=== PATIENT | male | born 1980 | race Caucasian/White ===

== ENCOUNTER 2017-02-02 16:58 | Inpatient (IN) | payer OTHER ==
--- NOTE | ~2017-02-02 | HP ---
Unit #: [id number] #: [id number] Patient: ANTHONY REINOSO [id number] [place] [address] [id number] I MR#: [id number] NAME: ANTHONY REINOSO. ROOM: P210 Age: 36 Sex: M Admission Date: 02/02/2017 : 1980 Attending Physician: Gonzales Baird M.D. Admitting Physician: Gonzales Baird M.D. Primary Care Physician: Primary Care Physician No HISTORY AND PHYSICAL HISTORY OF PRESENT ILLNESS Anthony is a 36 year old admitted to [address] [place] [address] with depression and verbalizing wanting to hurt himself. PAST MEDICAL HISTORY 1. Alcohol abuse 2. High blood pressure, he is noncompliant with medications. PAST SURGICAL HISTORY Nothing reported. ALLERGIES No known drug allergies. SOCIAL HISTORY He smokes one=half pack per day. Drinks at least 6 beers on a daily basis and denies illicit drug use. FAMILY HISTORY Medically noncontributory. REVIEW OF SYSTEMS CONSTITUTIONAL: No fever or chills. HEENT: Denies any sore throat, ear pain or runny nose. CARDIOVASCULAR: Denies chest pain, irregular heart rhythm or palpitations. CHEST: Denies shortness of breath or cough. No hemoptysis. GASTROINTESTINAL: Denies nausea, vomiting, diarrhea or chronic constipation. ENDOCRINE: Denies history of increased thirst or urination. No recent significant weight loss or gain. GENITOURINARY: Denies dysuria, frequency, or hematuria. SKIN: Denies any rashes. HEMATOLOGIC: Denies history of increased bleeding or bruising. MUSCULOSKELETAL: Denies any hot, swollen joints. No generalized muscle pain. NEUROLOGIC: Denies problems with vision or speech. No frequent, severe headaches. No numbness, tingling or weakness in any extremities. Denies loss of bladder or bowel control. CURRENT MEDICATIONS 1. Detox protocol 2. Tenormin 25 mg daily Unit #: [id number] #: [id number] Patient: ANTHONY REINOSO PHYSICAL EXAMINATION GENERAL: Alert, well-nourished, in no apparent distress. VITAL SIGNS: Blood pressure 140/92, heart rate 88, respirations 16, temperature 98.6. WEIGHT: 140 pounds. SKIN: Warm and dry without rash. He does have multiple abrasions/scratches to the right side of his neck. These areas have scabbed over. There is no increased redness, swelling, heat or pus noted. HEENT: Normocephalic. TMs not viewed. Oral and nasal passages clear. Conjunctivae clear. Pupils equal, round and reactive to light and accommodation. Extraocular movements intact. NECK: Supple without lymphadenopathy or thyromegaly. HEART: Regular rate and rhythm without murmur. LUNGS: Clear. ABDOMEN: Soft, nontender. : Not done. EXTREMITIES: No evidence of cyanosis, clubbing or edema. Moves all extremities without focal deficit. NEUROLOGICAL: Grossly within normal limits. Cranial Nerves: II: Visual patiño are intact. III, IV AND : Extraocular movements are intact. Pupils are equal, round and reactive to light. V: Facial sensation is grossly normal. VII: Facial movements and expression are normal. VIII: Auditory acuity grossly intact. IX, X: Uvula is midline. Phonation is normal. XI: Patient shrugs shoulders and turns head normally. XII: Tongue protrudes in the midline. Sensory and Motor Function: Sensory and motor sensation is grossly normal. Motor: moves all extremities well. Coordination: Gait is normal. Deep Tendon Reflexes: Intact. IMPRESSION 1. Psychiatric admission 2. Abrasions to the right side of his neck sustained prior to this admission. 3. High blood pressure. RECOMMENDATIONS PSYCHIATRIC: Per psychiatrist. MEDICAL: 1. I see no contraindications to participating in facility's activities. 2. Continue atenolol. 3. Keep the abrasions clean with soap and water. MEDICAL PROGNOSIS Good. MEDICAL CONDITION Stable. Dictated by... Marci Joseph P.A.-C. for Junaid Zavala M.D. Unit #: [id number] #: [id number] Patient: ANTHONY REINOSO JABIER/antwan TD: 02/04/2017 00:28 JOB #: [id number] HISTORY AND PHYSICAL X Marci Joseph HISTORY AND PHYSICAL
--- NOTE | ~2017-02-02 | A ---
[facility] DATE: 02/04/17 Patient: ANTHONY REINOSO Physician: ELDON Address: [address] [facility] Room/Bed: [address], Zip: [place] [address] Admit Date: 02/02/17 Date of : [birth year] Height: 6 2 Weight: [phone] NUTRITIONAL ASSESSMENT: REASON: Low BMI Admitting Dx: 36 y/o male admitted with depression and SI PMH: daily ETOH abuse, 1/2 ppd smoker, HTN Anthropometrics: Ht: 74", Wt: 140 lbs, IBW: 190 lbs, 74% IBW, BMI: 17 (underweight) Labs: Glucose 167, AST 183, ALT 223 Meds: Milk of Mg, Mag-Al, Loperamide, MVI, Thiamine, Folic acid, Balance B-50, Phenergan/zofran, psych meds noted I/O & Bowel function: No issues Assessment: Chart reviewed, events noted. See admitting dx and PMH above, patient undergoing ETOH detox. Recently fired from his job for not showing up and concerned he may be evicted soon, has hx of HTN and he is noncompliant with his medications. He is clinically underweight, no past weights available. Although he scored 0 points on the malnutrition risk score he reports a 5 lb weight loss in the past months and poor appetite (3.4% loss; mild). He is on a regular diet, appetite reported as good yesterday. See RD recs below. Dx: Underweight r/t ETOH abuse, depression AEB 3.4% body weight (mild) loss reported during needs assessment, BMI 17, 74% IBW. Intervention: Large portion entree Monitoring, Evaluation and Goals: 1. Adequate oral intake > 75% of meals. 2. Gradual weight gain towards a healthy BMI range. Monitor: Per protocol, criteria to determine if above goals met Recommendations: 1. Continue regular diet with no caffeine, appreciate staff to encourage adequate meal and fluid intake. Will send larger portion entree with lunch and dinner. 2. If PO intake is < 50% of meals please order Ensure BID (available in chocoalate or [facility] DATE: 02/04/17 Patient: ANTHONY REINOSO Physician: ELDON Address: [address] [facility] Room/Bed: [address], Zip: [place] [address] Admit Date: 02/02/17 Date of : [birth year] Height: 6 2 Weight: [phone] santos werner MD order). 3. Continue to treat and monitor detox sx, continue vitamins. 4. Please weight q 3 days for monitoring purposes, as the patient is underweight. RD will follow treatment course Mild-moderate nutrition risk Respectfully, Marleen Adams, CELINA, LD [facility] cc: client file
--- NOTE | ~2017-02-02 | PN ---
Unit #: [id number] #: [id number] Patient: ANTHONY REINOSO [id number] [facility] [address] [place] [address] [id number] MR#: [id number] NAME: ANTHONY REINOSO. ROOM: P210 Age: 36 Sex: M Admission Date: 02/02/2017 : 1980 Attending Physician: Gonzales Baird M.D. Admitting Physician: Gonzales Baird M.D. Primary Care Physician: Primary Care Physician Patrica BIRCH NOTES DATE OF SERVICE 02/03/2017 DISCUSSION Anthony Reinoso is a 36-year-old male seen on 02/03/2017. The patient interviewed, chart reviewed. Obtained information from nursing staff. The patient compliant, cooperative. Mood sad, dysphoric, flat affect, guarded. The patient is currently on detox protocol and also started on Desyrel for sleep, Vistaril for anxiety, and Celexa for depression. Complete Review of Systems: Unremarkable. MENTAL STATUS EXAMINATION General Appearance: The patient dressed casually. Attention span, concentration: Fair. Oriented in time, place, and person. Mood and affect: Sad, dysphoric, flat affect. Withdrawn, isolative. Speech: Monotone. Thought process: Richardson. The patient denied any thoughts of harming self or others. Able to contract for safety. Denied any psychotic symptom. Recent and remote memory: Poor. Insight and judgment: Poor. DIAGNOSES 1. Alcohol use disorder, severe. 2. Mood disorder not otherwise specified. ASSESSMENT/PLAN Advised to continue with current medication and therapeutic protocol. We will monitor response to medication and make further adjustment of medication. Dictated by... Max Albrecht/aubrey TD: 02/04/2017 12:39 JOB #: [id number] Unit #: [id number] #: [id number] Patient: ANTHONY REINOSO SARA PROGRESS NOTES X Gonzales Baird MD PROGRESS NOTE
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
--- NOTE | ~2017-02-02 | DS ---
Unit #: [id number] #: [id number] Patient: ANTHONY REINOSO [id number] [facility] [address] [place] [address] [id number] MR#: [id number] NAME: ANTHONY REINOSO. ROOM: [facility] Age: 36 Sex: M Admission Date: 02/02/2017 : 1980 Discharge Date: 02/04/2017 Attending Physician: Gonzales Baird M.D. Primary Care Physician: Primary Care Physician No DISCHARGE SUMMARY REASON FOR ADMISSION Aggression and mood lability. DIAGNOSTIC STUDIES LABORATORY RESULTS: Remarkable for glucose 167, AST, 183, ALT 223. HOSPITAL COURSE The patient was admitted to inpatient unit on 02/02/2017 and discharged on 02/04/2017. The patient was treated with detox protocol. The patient was treated with chemical dependency group, structured milieu, psychoeducation, psychotherapy. The patient showed improvement. Denied any thoughts of harming self or others. Responded well with the above modalities of treatment. DISCHARGE MEDICATIONS Celexa 20 mg daily for depression, Vistaril 25 mg t.i.d. for anxiety, Desyrel 50 mg at bedtime for sleep. DISCHARGE DIAGNOSES Psychiatric: 1. Alcohol use disorder, severe, F10.20. 2. Mood disorder, not otherwise specified, F32.9. Secondary diagnosis: Deferred. Medical diagnosis: Hypertension. Stressors: Psychosocial stressors. DISCHARGE INSTRUCTIONS The patient to follow up in outpatient clinic as per social work faculty member. CONDITION ON DISCHARGE The patient was pleasant and cooperative. Denied any psychotic symptom or any suicidal ideation. PROGNOSIS Guarded. DIET AND ACTIVITY As tolerated. Unit #: [id number] #: [id number] Patient: ANTHONY REINOSO Dictated by... Gonzales Baird M.D. SZC/theresal TD: 02/05/2017 01:42 JOB #: [id number] DISCHARGE SUMMARY X Gonzales Baird MD X DISCHARGE SUMMARY
[2017-02-03 09:42] LABS: BASOPHIL% 0.7 % (0-2.5); EOSINOPHIL# 0.1 X10e3 (0-0.7); EOSINOPHIL% 1.3 % (0.0-7.0); HEMATOCRIT 47.5 % (38.0-50.0); HEMOGLOBIN 15.8 gm/dL (13.0-16.0); LYMPHOCYTE# 0.8 X10e3 (1.0-3.5); LYMPHOCYTE% 12.3 % (17.0-45.0); MEAN CELL VOLUME 95.1 FL (83-96); MEAN CORPUSCULAR HEMOGLOBIN 31.7 PG (28-34); MEAN CORPUSCULAR HGB CONC 33.3 g/dL (30-36); MEAN PLATELET VOLUME 9.5 FL (6.5-11.5); MONOCYTE# 0.5 X10e3 (0-1.0); MONOCYTE% 8.2 % (3.0-12.0); NEUTROPHIL# 4.9 X10e3 (1.5-7.1); NEUTROPHIL% 77.5 % (40-75); PLATELET COUNT 119 X10e3 (140-420); RED BLOOD COUNT 4.99 X10e (3.90-5.60); WHITE BLOOD COUNT 6.4 X10e3 (4.0-10.5)
[2017-02-03 09:44] LABS: DIFF IND NO
[2017-02-03 09:56] LABS: THYROID STIMULATING HORMONE 2.92 uIU/ml (0.34-5.60)
[2017-02-03 10:03] LABS: FREE THYROXIN (T4) 1.22 ng/dL (0.58-1.64)
[2017-02-03 10:17] LABS: ALBUMIN SERUM 4.3 g/dL (3.5-5.0); ALKALINE PHOSPHATASE 107 U/L (32-92); ALT (SGPT) 223 U/L (10-40); AST (SGOT) 183 U/L (10-42); BILIRUBIN,TOTAL 1.7 mg/dL (0.2-2.0); BLOOD UREA NITROGEN 9 mg/dL (9-23); CALCIUM SERUM 9.4 mg/dL (8.4-10.2); CARBON DIOXIDE 22 mmol/L (22-31); CHLORIDE 101 mmol/L (100-111); CREATININE SERUM 0.5 mg/dL (0.6-1.4); GLOM FILT RATE Estimated ABOVE60 mL/min (>60); GLUCOSE FASTING 167 mg/dL (70-110); POTASSIUM 3.9 mmol/L (3.5-5.1); PROTEIN TOTAL SERUM 7.5 g/dL (6.0-8.3); SODIUM 134 mmol/L (135-145)
== END 2017-02-04 16:20 | DRG 897 ==
LOC: P2S 16:58
PROVIDERS: Psychiatry & Neurology Psychiatry
PROC: HZ2ZZZZ Detoxification Services for Substance Abuse Treatment (ICD-10-PCS; principal; 2017-02-02)
DX: F10.20 Alcohol dependence, uncomplicated (principal); F39 Unspecified mood [affective] disorder; I10 Essential (primary) hypertension; F17.200 Nicotine dependence, unspecified, uncomplicated; Z91.14 Patient's other noncompliance with medication regimen; S10.91XA Abrasion of unspecified part of neck, initial encounter
CPT/HCPCS: 80053; 84439; 84443; 85025; 86592

== ENCOUNTER 2017-03-22 00:34 | Inpatient (IN) | payer OTHER ==
--- NOTE | ~2017-03-22 | PN ---
Unit #: [id number] #: [id number] Patient: ANTHONY AYALA [id number] [facility] [address] [place] [address] [id number] MR#: [id number] NAME: ANTHONY AYALA. ROOM: P207 Age: 36 Sex: M Admission Date: 03/22/2017 : 1980 Attending Physician: Gonzales Baird M.D. Admitting Physician: Gonzales Baidr M.D. Primary Care Physician: Primary Care Physician Patrica KEATINGCE PROGRESS NOTES DATE OF SERVICE: 03/23/2017 DISCUSSION Anthony Ayala is a 36-year-old male, seen on 03/23/2017. The patient interviewed, chart reviewed, and obtained information from nursing staff. The patient was sad, dysphoric, flat affect, withdrawn, isolative. Able to maintain safe behavior. No aggression. The patient reports making progress, but still isolative. The patient is currently on Celexa, Zyprexa, and Vistaril. The patient has a history of depressive disorder, cocaine use disorder, and alcohol use disorder. Complete review of systems unremarkable. MENTAL STATUS EXAMINATION General appearance, the patient dressed casually. Attention span and concentration, fair. Oriented in time, place, and person. Mood and affect, sad and dysphoric. Speech, monotone. Thought process, concrete. The patient denied any thoughts of harming self or others. Recent and remote memory, poor. Insight and judgment, poor. DIAGNOSES 1. Mood disorder, not otherwise specified. 2. Cocaine use disorder, moderate. 3. Alcohol use disorder, moderate. ASSESSMENT AND PLAN Advised to continue with current medication and therapeutic protocol. If needed, consider further adjustment of medication. Dictated by... Gonzales Baird M.D. SZC/modl TD: 03/23/2017 22:48 JOB #: [id number] Unit #: [id number] #: [id number] Patient: ANTHONY AYALA [facility] PROGRESS NOTES Page 1 of 1 X Gonzales Baird MD X PROGRESS NOTE
--- NOTE | ~2017-03-22 | HP ---
Unit #: [id number] #: [id number] Patient: ANTHONY REINOSO [id number] [place] [address] [id number] I MR#: [id number] NAME: ANTHONY REINOSO. ROOM: [facility] Age: 36 Sex: M Admission Date: 03/22/2017 : 1980 Attending Physician: Gonzales Baird M.D. Admitting Physician: Gonzales Baird M.D. Primary Care Physician: Primary Care Physician No HISTORY AND PHYSICAL HISTORY OF PRESENT ILLNESS The patient is a 36-year-old male admitted to [address] [place] [address] on 03/21/2017 for suicidal ideations. PAST MEDICAL HISTORY Hypertension PAST SURGICAL HISTORY Cholecystectomy SOCIAL HISTORY The patient is unemployed. He has unstable housing. He smokes about five cigarettes per day. He drinks 8 beers per day and uses coke and methamphetamines on an occasional basis. FAMILY MEDICAL HISTORY Noncontributory. ALLERGIES No known drug allergies. CURRENT MEDICATIONS 1. Lisinopril 2. Zyprexa 3. Celexa 4. Vistaril 5. Trazodone REVIEW OF SYSTEMS CONSTITUTIONAL: No fever or chills. HEENT: Denies any sore throat, ear pain or runny nose. CARDIOVASCULAR: Denies chest pain, irregular heart rhythm or palpitations. CHEST: Denies shortness of breath or cough. No hemoptysis. GASTROINTESTINAL: Denies nausea, vomiting, diarrhea or chronic constipation. ENDOCRINE: Denies history of increased thirst or urination. No recent significant weight loss or gain. GENITOURINARY: Denies dysuria, frequency, or hematuria. SKIN: Denies any rashes. HEMATOLOGIC: Denies history of increased bleeding or bruising. MUSCULOSKELETAL: Denies any hot, swollen joints. No generalized muscle pain. NEUROLOGIC: Denies problems with vision or speech. No frequent, severe Unit #: [id number] #: [id number] Patient: ANTHONY REINOSO headaches. No numbness, tingling or weakness in any extremities. Denies loss of bladder or bowel control. PHYSICAL EXAM GENERAL: He is awake, alert and oriented in no acute distress. VITAL SIGNS: Temperature 98.0, heart rate 83, respiration 16, blood pressure 139/104. HEIGHT: 6'2". WEIGHT: 150 pounds. SKIN: Warm and dry without rash or lesion. HEENT: Normocephalic. TMs not viewed. Oral and nasal passages clear. Conjunctivae clear. PERRLA. EOMs intact. NECK: Supple without lymphadenopathy or thyromegaly. HEART: Regular rate and rhythm without murmur. LUNGS: Clear. ABDOMEN: Soft, nontender. : Not done. EXTREMITIES: No evidence of cyanosis, clubbing or edema. Moves all without focal deficit. NEUROLOGICAL: Grossly within normal limits. Cranial Nerves: II: Visual patiño are intact. III, IV AND : Extraocular movements are intact. Pupils are equal, round and reactive to light. V: Facial sensation is grossly normal. VII: Facial movements and expression are normal. VIII: Auditory acuity grossly intact. IX, X: Uvula is midline. Phonation is normal. XI: Patient shrugs shoulders and turns head normally. XII: Tongue protrudes in the midline. Sensory and Motor Function: Sensory and motor sensation is grossly normal. Motor: moves all extremities well. IMPRESSION 1. Psychiatric admission. 2. Hypertension. RECOMMENDATIONS Psychiatric per psychiatrist. MEDICAL: No contraindication to participate in facility activities. MEDICAL PROGNOSIS Good. MEDICAL CONDITION Stable. Dictated by... Onesimo Maldonado/antwan TD: 03/22/2017 21:23 JOB #: [id number] Unit #: [id number] #: [id number] Patient: ANTHONY REINOSO HISTORY AND PHYSICAL Page 1 of 1 X CHACORTA MACIAS APRN HISTORY AND PHYSICAL
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
--- NOTE | ~2017-03-22 | PN ---
Unit #: [id number] #: [id number] Patient: ANTHONY REINOSO [id number] [facility] [address] [place] [address] [id number] MR#: [id number] NAME: ANTHONY REINOSO. ROOM: P207 Age: 36 Sex: M Admission Date: 03/22/2017 : 1980 Attending Physician: Gonzales Baird M.D. Admitting Physician: Gonzales Baird M.D. Primary Care Physician: Primary Care Physician Patrica BIRCH NOTES DATE OF SERVICE: 03/24/2017 DISCUSSION Anthony Reinoso is a 36-year-old male, seen on 03/24/2017. The patient interviewed, chart reviewed, and obtained information from nursing staff. The patient is tolerating medications fairly well, compliant, cooperative. Mood was sad, dysphoric, flat affect, guarded. The patient denied any complaint; currently on Zyprexa, Celexa, and Vistaril. Complete review of systems unremarkable. MENTAL STATUS EXAMINATION General appearance, the patient dressed casually. Attention span and concentration, fair. Oriented in place and person. Mood and affect, sad and depressed. Speech, monotone. Thought process, concrete. The patient denied any thoughts of harming self or others. Recent and remote memory, poor. Insight and judgment, poor. DIAGNOSES 1. Mood disorder, not otherwise specified. 2. Cocaine use disorder, severe. 3. Opioid use disorder, moderate. ASSESSMENT AND PLAN Advised to continue with current medication and therapeutic protocol. If needed, consider further adjustment of medication. Dictated by... Max Albrecht/joseline TD: 03/24/2017 16:53 JOB #: [id number] Unit #: [id number] #: [id number] Patient: ANTHONY REINOSO SARA BIRCH NOTES Page 1 of 1 X Gonzales Baird MD PROGRESS NOTE
--- NOTE | ~2017-03-22 | DS ---
Unit #: [id number] #: [id number] Patient: ANTHONY REINOSO [id number] [facility] [address] [place] [address] [id number] MR#: [id number] NAME: ANTHONY REINOSO. ROOM: P207 Age: 36 Sex: M Admission Date: 03/22/2017 : 1980 Discharge Date: 03/25/2017 Attending Physician: Gonzales Baird M.D. Primary Care Physician: Primary Care Physician No DISCHARGE SUMMARY REASON FOR ADMISSION Polysubstance abuse, suicidal ideation. DIAGNOSTIC STUDIES LABORATORY DATA: Remarkable for urine drugs screen, positive for benzodiazepine. HOSPITAL COURSE The patient was admitted to inpatient unit on March 22 and discharged on 03/25/2017. The patient was treated on the inpatient unit with group therapy, individual therapy, and medication management. The patient responded well with the above modalities of treatment, and detox protocol. Subsequently, the patient was discharge with a plan to follow up in outpatient program. DISCHARGE MEDICATIONS 1. Zestril 20 mg daily for hypertension. 2. Zyprexa 5 mg daily for psychosis. 3. Celexa 20 mg daily for depression. 4. Vistaril 25 mg 3 times a day for anxiety. 5. Desyrel 50 mg at bedtime for sleep. DISCHARGE DIAGNOSES PSYCHIATRIC: Major depressive disorder, recurrent, severe. Cocaine use disorder, severe. Opiate use disorder, severe. Alcohol use disorder, moderate. SECONDARY: Deferred. MEDICAL: Hypertension. STRESSORS: Psychosocial stressor. DISCHARGE INSTRUCTIONS The patient to follow up in outpatient clinic as per clinical social work aide. CONDITION ON DISCHARGE The patient pleasant, cooperative. Denied any psychotic symptom or any suicidal ideation. PROGNOSIS Guarded. DIET AND ACTIVITY As tolerated. Unit #: [id number] #: [id number] Patient: ANTHOYN REINOSO Dictated by... Gonzales Baird M.D. SZC/kennedyg TD: 03/26/2017 14:29 JOB #: [id number] DISCHARGE SUMMARY Page 1 of 1 X Gonzales Baird MD X DISCHARGE SUMMARY
--- NOTE | ~2017-03-22 | PN ---
Unit #: [id number] #: [id number] Patient: ANTHONY REINOSO [id number] [facility] [address] [place] [address] [id number] I MR#: [id number] NAME: ANTHONY REINOSO. ROOM: P207 Age: 36 Sex: M Admission Date: 03/22/2017 : 1980 Attending Physician: Gonzales Baird M.D. Admitting Physician: Gonzales Baird M.D. Primary Care Physician: Primary Care Physician Patrica RUIZ PROGRESS NOTES DATE 03/24/2017 DISCUSSION Anthony Reinoso is a 36-year-old male. The patient interviewed, chart reviewed, and obtained information from the nursing staff. The patient was compliant and cooperative. Mood sad and dysphoric, flat affect, and guarded. The patient withdrawn, isolative, flat affect, compliant with medication. REVIEW OF SYSTEMS Complete review of systems unremarkable. MENTAL STATUS EXAMINATION General appearance: Patient dressed casually. Attention span and concentration, fair. Oriented to place and person. Mood and affect, labile. Speech, monotone. Thought process, concrete. The patient denied any thoughts of harming self or others but withdrawn and isolative, guarded. No side effects from medications. Recent and remote memory, poor. Insight and judgment, poor. DIAGNOSIS Mood disorder, NOS. ASSESSMENT/PLAN Advised to continue with the current medication and therapeutic protocol and if needed consider adjustment of medication. Dictated by... Max Albrecht/odalis TD: 03/25/2017 09:56 JOB #: [id number] Unit #: [id number] #: [id number] Patient: ANTHONY REINOSO SARA PROGRESS NOTES Page 1 of 1 X Gonzales Baird MD PROGRESS NOTE
[2017-03-23 09:29] LABS: BASOPHIL% 0.7 % (0-2.5); DIFF IND NO; EOSINOPHIL# 0.2 X10e3 (0-0.7); EOSINOPHIL% 3.3 % (0.0-7.0); HEMATOCRIT 49.8 % (38.0-50.0); HEMOGLOBIN 16.5 gm/dL (13.0-16.0); LYMPHOCYTE# 2.1 X10e3 (1.0-3.5); LYMPHOCYTE% 35.8 % (17.0-45.0); MEAN CELL VOLUME 94.4 FL (83-96); MEAN CORPUSCULAR HEMOGLOBIN 31.2 PG (28-34); MEAN CORPUSCULAR HGB CONC 33.1 g/dL (30-36); MEAN PLATELET VOLUME 9.6 FL (6.5-11.5); MONOCYTE# 0.5 X10e3 (0-1.0); MONOCYTE% 8.9 % (3.0-12.0); NEUTROPHIL% 51.3 % (40-75); PLATELET COUNT 117 X10e3 (140-420); RED BLOOD COUNT 5.28 X10e (3.90-5.60); WHITE BLOOD COUNT 5.8 X10e3 (4.0-10.5)
[2017-03-23 09:52] LABS: BILIRUBIN,TOTAL 1.9 mg/dL (0.2-2.0); CALCIUM SERUM 9.7 mg/dL (8.4-10.2); CREATININE SERUM 0.7 mg/dL (0.6-1.4); GLOM FILT RATE Estimated 123.2 mL/min (>60); POTASSIUM 3.7 mmol/L (3.5-5.1); PROTEIN TOTAL SERUM 7.3 g/dL (6.0-8.3)
[2017-03-25 13:25] LABS: URINE APPEARANCE TURBID; URINE BILIRUBIN NEG (NEG); URINE BLOOD NEG (NEG); URINE COLOR DK YELLOW; URINE GLUCOSE NEG (NEG); URINE KETONE NEG (NEG); URINE LEUKOCYTE ESTERASE NEG (NEG); URINE NITRATE NEG (NEG); URINE PH 7.5 (5-8); URINE PROTEIN NEG (NEG); URINE SPECIFIC GRAVITY 1.017 (1.003-1.035)
[2017-03-25 13:58] LABS: AMPHETAMINE NEG (NEG); BARBITURATES NEG (NEG); BENZODIAZEPINES POS (NEG); COCAINE NEG (NEG); MARIJUANA NEG (NEG); OPIATES NEG (NEG); TRICYCLIC ANTIDEPRESSANTS NEG (NEG); U METHADONE NEG (NEG)
== END 2017-03-25 14:45 | DRG 885 ==
LOC: P2S 00:34
PROVIDERS: Psychiatry & Neurology Psychiatry
PROC: HZ2ZZZZ Detoxification Services for Substance Abuse Treatment (ICD-10-PCS; principal; 2017-03-22)
DX: F33.2 Major depressive disorder, recurrent severe without psychotic features (principal); F11.20 Opioid dependence, uncomplicated; R45.851 Suicidal ideations; F14.20 Cocaine dependence, uncomplicated; F10.20 Alcohol dependence, uncomplicated; I10 Essential (primary) hypertension; Z90.49 Acquired absence of other specified parts of digestive tract; F39 Unspecified mood [affective] disorder
CPT/HCPCS: 80053; 80307; 81003; 85025; 86592